=== PATIENT | female | born 1985 | race Caucasian/White ===

== ENCOUNTER → 2017-01-23 | Outpatient (CLI) | payer OTHER ==
--- NOTE | 2017-01-23 15:04 | XR ---
Lumbosacral spine HISTORY: Low back pain 5 views of the lumbosacral spine No comparisons There is no spondylolysis or spondylolysis. Loss of disc height present at L4-5, L5-S1. No significan t spondylolisthesis. IMPRESSION: Degenerative disc disease.
== END ==
LOC: RADXRMAIN 11:05
PROVIDERS: ATTEND Family Medicine
DX: M51.36 Other intervertebral disc degeneration, lumbar region (principal)
CPT/HCPCS: 72110

== ENCOUNTER → 2018-01-31 | Outpatient (CLI) | payer BC ==
--- NOTE | 2018-01-31 09:20 | USB ---
Reason for exam: clinical finding. History: Silicone gel implants, October 2016. Physical Findings: Nurse Summary: bilateral implants with exam feel "wrinkled" under breasts (nurse kp). US Breast Limited BILAT Right limited breast ultrasound including focal area of concern, retroareolar and axilla demonstrates no cystic or solid lesion seen. Left limited breast ultrasound including focal area of concern, retroareolar and axilla demonstrates no cystic or solid lesion seen. At 12 o'clock BB fluid noted outside of implant. No corresponding solid or cystic mass for the palpable abnormality. Extracapsular fluid on the left is concerning for extracapsular rupture. These results were verbally communicated with the patient and result sheet given to the patient on 01/31/18. ASSESSMENT: Negative, BI-RAD 1 RECOMMENDATION: Breast MRI of both breasts. (for rupture evaluation with silicone. Manage on a clinical basis. Mammography recommended after clinical exam for rupture.
== END | disposition home or self-care (01) ==
LOC: RADUSWWP 08:06
PROVIDERS: ATTEND Surgery
DX: N64.89 Other specified disorders of breast (principal)

== ENCOUNTER 2024-05-03 02:36 | Emergency (ER) | payer OTHER | END 2024-05-03 03:40 | disposition home or self-care (01) | LOC: EC 02:36 → EDSTATUS 11:55 | DX: Y04.1XXA Assault by human bite, initial encounter | CPT/HCPCS: 99283 ==